=== PATIENT | female | born 1980 | race African-American/Black ===

== ENCOUNTER → 2016-11-24 | Outpatient (CLI) | payer OTHER ==
--- NOTE | 2016-11-24 10:55 | RAD ---
EXAM: DIGITAL DIAGNOSTIC BILATERAL, BREAST BILATERAL. HISTORY: History of bilateral breast reduction. Right breast thickening at 12:00. Round mass in the right breast at 8-9:00. Left breast thickening at 3:00. COMPARISON: None, this is a baseline. FINDINGS: Digital mammography was performed. Computer-aided detection (CAD) was utilized. Routine CC and MLO views of both breasts were obtained. BBs were placed in the right breast at 12:00 and at 9:00 in area of interest as well as in the left breast at 3:00 in area of interest. The breast parenchyma is extremely dense, which could reduce sensitivity of mammography (tissue density D). No dominant suspicious mass, suspicious microcalcifications, or architectural distortion is identified. Further evaluation was performed with ultrasound. Ultrasound imaging was performed of both breasts by surgical scrub technologist. Ultrasound imaging was performed of the right breast at 12:00. No solid or cystic masses are identified. Normal-appearing, dense breast tissue is seen. Additional imaging was performed of the right breast from 8:00 through 10:00 at 4 cm from the nipple. This area is also without evidence of a solid or cystic mass. Normal-appearing dense breast tissue is seen. Ultrasound imaging was performed of the left breast at 3:00 and 4:00 in area of concern. No solid or cystic masses are identified. Normal-appearing dense breast tissue is seen. IMPRESSION: No mammographic evidence of malignancy. No mammographic or sonographic abnormality is seen. Recommend following ACR guidelines regarding institution of annual screening mammography. If patient is of average risk, screening mammography can commence at age 40. BI-RADS CATEGORY: 1 NEGATIVE RECOMMENDED FOLLOW-UP: CLIN FOLLOW UP IMAGING CLINICALLY INDICATED PQRS compliance statement: Patient information was entered into a reminder system with a target due date for the next mammogram. Mammography is a sensitive method for finding small breast cancers, but it does not detect them all and is not a substitute for careful clinical examination. A negative mammogram does not negate a clinically suspicious finding and should not result in delay in biopsying a clinically suspicious abnormality. "Our facility is accredited by the [employer] Mammography Program."
== END | disposition home or self-care (01) ==
LOC: MAMMO 09:31
PROVIDERS: ATTEND Nurse Practitioner Family
DX: N63 Unspecified lump in breast (principal)
CPT/HCPCS: 76641; G0204; 77066